=== PATIENT | male | born 1990 ===

== ENCOUNTER 2024-03-10 18:31 | Emergency (ER) | payer BC ==
[2024-03-10 19:05] LABS: BASOPHILS PERCENT AUTO 0.4 % (0.0-1.0); EOSINOPHILS PERCENT AUTO 0.6 % (1.0-3.0); HEMATOCRIT 45.5 % (40.0-54.0); HEMOGLOBIN 15.5 g/dL (14.0-18.0); LYMPHOCYTES PERCENT AUTO 18.5 % (20.5-50.1); MEAN CORPUSCULAR HEMOGLOBIN 29.4 pg (27.0-34.0); MEAN CORPUSCULAR HGB CONC 34.1 g/dL (33.0-35.0); MEAN CORPUSCULAR VOLUME 86.3 fL (80-100); MONOCYTES PERCENT AUTO 10.4 % (2-8); NEUTROPHILS PERCENT AUTO 70.1 % (42.2-75.2); PLATELET COUNT,PLT 330 10^3/uL (150-450); RED BLOOD CELL COUNT 5.27 10^6/uL (4.6-6.2); WHITE BLOOD CELL COUNT,WBC 11.1 10^3/uL (5.0-10.0)
[2024-03-10] MEDS: Sodium Chloride 0.9% 1,000 ML IV ONE (19:08)
[2024-03-10] MEDS: Ketorolac 30 MG/ML SDV IVPUSH ONE (19:09)
[2024-03-10] MEDS: Sodium Chloride 0.9% 10 ML Syringe FLUSH PRN (19:14)
[2024-03-10] MEDS: Acetaminophen 500 MG Tab PO ONE (19:15)
[2024-03-10 19:21] LABS: A/G RATIO 0.9; ALBUMIN 3.7 g/dL (3.4-5.0); BILIRUBIN TOTAL 0.8 mg/dL (0.2-1.0); BUN/CREATININE RATIO 7.5 (No establ ref range); C-REACTIVE PROTEIN 1.79 ng/dL (<=0.50); CREATININE 1.06 mg/dL (0.70-1.30); EST CRCL DRUG DOSING (CG) 102.35 mL/min; PROTEIN TOTAL,TP 7.7 g/dL (6.4-8.2)
[2024-03-10 20:16] LABS: APPEARANCE,URINE CLEAR (CLEAR); BILIRUBIN,URINE NEGATIVE (NEGATIVE); COLOR,URINE YELLOW (YELLOW); GLUCOSE,URINE NEGATIVE (NEGATIVE); KETONES,URINE NEGATIVE (NEGATIVE); LEUKOCYTE ESTERASE,URINE NEGATIVE (NEGATIVE); NITRITE,URINE NEGATIVE (NEGATIVE); OCCULT BLOOD,URINE TRACE-INTACT (NEGATIVE); PROTEIN,URINE NEGATIVE (NEGATIVE); UROBILINOGEN,URINE 0.2 mg/dL (0.2-1.0)
[2024-03-10 20:21] LABS: BACTERIA,URINE RARE /HPF (0-FEW/HPF); EPITHELIAL CELLS,URINE FEW /HPF (NOT SEEN); MUCUS,URINE FEW /LPF (NOT SEEN); RBC,URINE 0-5 /HPF (0-5); WBC,URINE NOT SEEN /HPF (0-5/HPF)
[2024-03-10] MEDS: Levofloxacin 500 MG Tab PO ONE (20:40)
== END 2024-03-10 20:46 | disposition home or self-care (01) ==
LOC: DL.ED 18:31
DX: N45.3 Epididymo-orchitis (principal); Z86.16 Personal history of COVID-19; Z88.1 Allergy status to other antibiotic agents
CPT/HCPCS: 36415; 76870; 80053; 81001; 85025; 86140; 96374; 99284-25; A9270-GY; J1885; J3490; J7030